=== PATIENT | male | born 1990 | race African-American/Black ===

== ENCOUNTER 2017-02-11 21:10 | Emergency (ER) | payer BC ==
[~2017-02-11] VITALS: Ht 167.6 cm; Wt 100.2 kg
[~2017-02-11 21:10] MED LIST: AMOXICILLIN500 MG PO; CLARITIN10 M3 PO
[2017-02-11 21:50] LABS: MCH 26.2 PG (29.0-34.0); MCV 79.3 FL (86-99); MEAN PLAT.VOLUME 10.8 uM^3 (9.0-12.4); PLATELET COUNT 255 K/uL (156-360); RBC DIS.WIDTH-CV 13.5 % (11.8-14.6); RBC DIS.WIDTH-SD 38.7 % (39-53); RED BLOOD COUNT 5.42 M/uL (4.00-5.50); WHITE BLOOD COUNT 7.8 K/uL (4.1-10.2)
[2017-02-11 22:01] LABS: CHLORIDE 104 mEq/L (99-109); POTASSIUM 4.1 mEq/L (3.7-5.4); SODIUM 137 mEq/L (136-147)
[2017-02-11 22:03] LABS: GLUCOSE 99 mg/dL (70-99)
[2017-02-11 22:04] LABS: ANION GAP 10 MEQ/L (2-14)
[2017-02-11 22:05] LABS: TOTAL BILIRUBIN 1.2 mg/dL (0.0-1.0)
[2017-02-11 22:06] LABS: ALKALINE PHOSPHATASE 87 IU/L (3-129)
[2017-02-11 22:07] LABS: GFR ESTIMATE (CALCULATED) > 59 mL/min/
[2017-02-11 22:08] LABS: UREA NITROGEN (BUN) 11 mg/dL (9-23)
[2017-02-11 22:45] LABS: DIRECT BILIRUBIN 0.3 mg/dL (0.0-0.3); LIPASE 69 U/L (1.0-51.0)
[2017-02-11 23:56] LABS: ADD MIUA? YES; BILIRUBIN NEGATIVE; BLOOD NEGATIVE; COLOR YELLOW ((YELLOW)); GLUCOSE (STRIP) NEGATIVE; KETONES NEGATIVE; LEUKOCYTES NEGATIVE; NITRITE NEGATIVE; PROTEIN (STRIP) 30; SPECIFIC GRAVITY 1.021 (1.000-1.030)
[2017-02-12 00:02] LABS: C DIFF TOXIN NEGATIVE (NEGATIVE)
[2017-02-12 00:07] LABS: PROBE CHECK PASS; SPECIMEN PROCESSING CONTROL PASS
[2017-02-12 00:24] LABS: SERUM ETHYL ALCOHOL < 10 mg/dL
[2017-02-12 00:36] LABS: BACTERIA RARE /HPF; CALCIUM OXALATE CRYSTALS 4+ /HPF; EPITHELIAL CELLS NONE SEEN /HPF; MUCUS TRACE /LPF; RED BLOOD CELLS 0-5 /HPF (0-5); UCUL ADDED? NO; WHITE BLOOD CELLS 0-5 /HPF (0-5)
[2017-02-12] MEDS ORDERED: BENTYL20 MG PO (01:01)
[2017-02-12] MEDS ORDERED: REGLAN10 MG PO (01:01)
[2017-02-12 01:03] VITALS: BP 154/91
== END 2017-02-12 01:19 | disposition home or self-care (01) ==
LOC: EME 21:10
PROVIDERS: Physician Assistant
DX: G89.29 Other chronic pain (principal); R10.84 Generalized abdominal pain; R19.7 Diarrhea, unspecified; R03.0 Elevated blood-pressure reading, without diagnosis of hypertension; R94.5 Abnormal results of liver function studies; F17.200 Nicotine dependence, unspecified, uncomplicated
CPT/HCPCS: 74020; 80053; 81003; 82248; 83690; 85027; 87045; 87046; 87186; 87493; 87506; 99281; 99284; G0480